=== PATIENT | female | born 2000 | race Caucasian/White ===

== ENCOUNTER 2018-12-20 19:25 | Emergency (ER) | payer OTHER ==
[~2018-12-20] VITALS: Ht 175.3 cm; Wt 64.2 kg
[2018-12-20 19:42] VITALS: BP 108/71
[2018-12-20] MEDS ORDERED: PLEASE ENTER ALLERGIES MC SCH (20:00)
[2018-12-20] MEDS ORDERED: FAMOTIDINE 20 MG TABLET PO ONE (20:00)
[2018-12-20] MEDS ORDERED: FAMOTIDINE 20 MG TABLET ONE (21:04)
[2018-12-20] MEDS ORDERED: LAMO25TB2 PO (21:09)
[2018-12-20] MEDS ORDERED: SERT100T PO (21:09)
[2018-12-20] MEDS ORDERED: DEXTROSE 50%, 50ML SYRINGE ONE (22:45)
[2018-12-20] MEDS ORDERED: DEXTROSE 50%, 50ML SYRINGE IVPush ONE (23:00)
[2018-12-20 23:01] LABS: BASOPHILS # (AUTO) 0.11 x10^3/uL (0-0.3); BASOPHILS % (AUTO) 2 % (0-1); EOSINOPHILS # (AUTO) 0.38 x10^3/uL (0-0.8); EOSINOPHILS % (AUTO) 5 % (1-7); LYMPHOCYTES # (AUTO) 1.68 x10^3/uL (1-6.1); LYMPHOCYTES % (AUTO) 23 % (22-44); MD NO; MEAN CORPUSCULAR HEMOGLOBIN 29.4 pg (27.0-34.8); MEAN CORPUSCULAR HGB CONC 33.8 g/dL (32.4-35.8); MEAN CORPUSCULAR VOLUME 87.2 fL (80-100); MEAN PLATELET VOLUME 8.1 fL (7.4-10.4); MONOCYTES # (AUTO) 0.27 x10^3/uL (0-1.4); MONOCYTES % (AUTO) 4 % (2-9); NEUTROPHILS # (AUTO) 4.81 x10^3/uL (1.8-8.0); NEUTROPHILS % (AUTO) 66 % (42-75); PLATELET COUNT 329 x10^3/uL (130-400); RED BLOOD COUNT 4.45 x10^6/uL (3.82-5.3); RED CELL DISTRIBUTION WIDTH 13.3 % (9.6-15.2)
[2018-12-20 23:14] LABS: ALANINE AMINOTRANSFERASE 16 U/L (12-78); ALBUMIN 4.3 g/dL (3.4-5.0); ANION GAP 3 mmol/L (5-15); CALCIUM 8.9 mg/dL (8.5-10.1); CHLORIDE 110 mmol/L (98-107); CREATININE 0.73 mg/dL (0.55-1.02)
[2018-12-20 23:16] LABS: ALKALINE PHOSPHATASE 89 U/L (45-117); BILIRUBIN,TOTAL 0.2 mg/dL (0.2-1.0); TOTAL PROTEIN 7.5 g/dL (6.4-8.2)
== END 2018-12-20 23:52 | disposition home or self-care (01) ==
LOC: ED 23:00
DX: L27.0 Generalized skin eruption due to drugs and medicaments taken internally (principal); T42.6X5A Adverse effect of other antiepileptic and sedative-hypnotic drugs, initial encounter; Y92.89 Other specified places as the place of occurrence of the external cause; E16.2 Hypoglycemia, unspecified
CPT/HCPCS: 36415; 80053; 82962; 85025; 96374; 99284; J7512; Q0177